=== PATIENT | male | born 1965 | race Caucasian/White ===

== ENCOUNTER → 2016-03-28 | Outpatient (CLI) | payer OTHER ==
[2016-03-28 18:14] LABS: ALBUMIN 4.6 GM/DL (3.2-5.2); ALBUMIN/GLOBULIN RATIO 1.44 (1.00-1.93); ALKALINE PHOSPHATASE 74 U/L (45-117); ALT/SGPT 45 U/L (12-78); ANION GAP 5 MEQ/L (8-16); AST/SGOT 30 U/L (15-37); BILIRUBIN,TOTAL 0.6 MG/DL (0.2-1.0); BLOOD UREA NITROGEN 19 MG/DL (7-18); CALCIUM LEVEL 9.5 MG/DL (8.5-10.1); CARBON DIOXIDE LEVEL 32 MEQ/L (21-32); CHLORIDE LEVEL 104 MEQ/L (98-107); CREATININE FOR GFR 0.86 MG/DL (0.70-1.30); GLOMERULAR FILTRATION RATE > 60.0 (>60); GLUCOSE, FASTING 123 MG/DL (70-105); POTASSIUM SERUM 4.5 MEQ/L (3.5-5.1); SODIUM LEVEL 141 MEQ/L (136-145); TOTAL PROTEIN 7.8 GM/DL (6.4-8.2)
[2016-03-31 00:07] LABS: PSA TOTAL 0.4 ng/mL (0.0-4.0)
== END ==
LOC: M WUC 14:21
PROVIDERS: ATTEND Nurse Practitioner Family
DX: Z12.5 Encounter for screening for malignant neoplasm of prostate (principal); I10 Essential (primary) hypertension

== ENCOUNTER 2016-07-06 14:11 | Emergency (ER) | payer OTHER ==
[~2016-07-06] VITALS: Ht 182.9 cm; Wt 113.4 kg
[2016-07-06] MEDS ORDERED: HYDR25TA6 (14:25)
[2016-07-06] MEDS ORDERED: BREO1INH (14:25)
[2016-07-06] MEDS ORDERED: ALBU17IN (14:25)
[2016-07-06] MEDS ORDERED: ENAL10TA2 (14:25)
[2016-07-06] MEDS ORDERED: IBUP80TA (14:26)
--- NOTE | 2016-07-06 16:07 | REP ---
LEFT SHOULDER, THREE VIEWS: HISTORY: Injury. There is no acute fracture or dislocation. There is narrowing of the joint spaces. Osteophytes are present at the acromioclavicular joint. Subchondral cysts are present in the head of the humerus. IMPRESSION: Degenerative change as described above. Signed by Gigi Be MD 07/06/2016 04:08 P
[2016-07-06 16:14] VITALS: BP 170/108
[2016-07-06] MEDS ORDERED: CYCL10TA PO (16:14)
[2016-07-06] MEDS ORDERED: NAPR500T PO (16:14)
== END 2016-07-06 16:33 | disposition home or self-care (01) ==
LOC: M ED 15:12
DX: M19.012 Primary osteoarthritis, left shoulder (principal); I10 Essential (primary) hypertension; J45.909 Unspecified asthma, uncomplicated; F17.200 Nicotine dependence, unspecified, uncomplicated; Z79.899 Other long term (current) drug therapy

== ENCOUNTER → 2016-08-29 | Outpatient (CLI) | payer OTHER ==
[~2016-08-29] MED LIST: ALBU17IN; BREO1INH; CYCL10TA PO; ENAL10TA2; HYDR25TA6; IBUP80TA; NAPR500T PO
[2016-08-29 19:09] LABS: ANION GAP 4 MEQ/L (8-16); BLOOD UREA NITROGEN 17 MG/DL (7-18); CALCIUM LEVEL 10.1 MG/DL (8.5-10.1); CARBON DIOXIDE LEVEL 31 MEQ/L (21-32); CHLORIDE LEVEL 101 MEQ/L (98-107); CREATININE FOR GFR 0.86 MG/DL (0.70-1.30); GLOMERULAR FILTRATION RATE > 60.0 (>56); GLUCOSE, FASTING 104 MG/DL (70-105); SODIUM LEVEL 136 MEQ/L (136-145)
[2016-08-29 19:11] LABS: POTASSIUM SERUM 5.7 MEQ/L (3.5-5.1)
== END ==
LOC: M WUC 14:20
PROVIDERS: ATTEND Nurse Practitioner Family
DX: I10 Essential (primary) hypertension (principal)

== ENCOUNTER → 2017-02-08 | Outpatient (REF) | payer OTHER ==
[2017-02-08 12:21] LABS: HEMOGLOBIN 15.8 g/dl (14.0-18.0); MEAN CORPUSCULAR HEMOGLOBIN 28.9 pg (27.0-33.0); MEAN CORPUSCULAR HGB CONC 33.6 g/dl (32.0-36.5); MEAN CORPUSCULAR VOLUME 85.9 fl (80.0-96.0); PLATELET COUNT, AUTOMATED 352 10^3/uL (150-450); RED BLOOD COUNT 5.47 10^6/uL (4.30-6.10); RED CELL DISTRIBUTION WIDTH 12.6 % (11.5-14.5); WHITE BLOOD COUNT 11.7 10^3/uL (4.0-10.0)
[2017-02-08 12:26] LABS: INR 0.98; PARTIAL THROMBOPLASTIN TIME 29.9 SECONDS (26.8-37.9); PROTHROMBIN TIME 13.1 SECONDS (12.4-14.5)
[2017-02-08 12:46] LABS: ANION GAP 8 MEQ/L (8-16); BLOOD UREA NITROGEN 17 MG/DL (7-18); CALCIUM LEVEL 9.8 MG/DL (8.5-10.1); CARBON DIOXIDE LEVEL 29 MEQ/L (21-32); CHLORIDE LEVEL 98 MEQ/L (98-107); CREATININE FOR GFR 0.83 MG/DL (0.70-1.30); GLOMERULAR FILTRATION RATE > 60.0 (>56); GLUCOSE, FASTING 122 MG/DL (70-105); POTASSIUM SERUM 3.8 MEQ/L (3.5-5.1); SODIUM LEVEL 135 MEQ/L (136-145)
== END ==
LOC: M SFHCPLAZ 10:23
DX: Z01.818 Encounter for other preprocedural examination (principal); M75.122 Complete rotator cuff tear or rupture of left shoulder, not specified as traumatic

== ENCOUNTER → 2017-03-08 | Outpatient (CLI) | payer OTHER | LOC: M SLEEP HO 10:13 | DX: G47.33 Obstructive sleep apnea (adult) (pediatric) (principal) ==

== ENCOUNTER → 2020-07-21 | Outpatient (REF) ==
[~2020-07-21] MED LIST changes: +CYCL-707 PO; -CYCL10TA PO; +ENAL-36; -ENAL10TA2; +HYDR-3490 PO; +HYDR-3713 PO; +NAPR-837 PO; -NAPR500T PO
--- NOTE | 2020-07-22 08:04 | REPPI ---
INDICATION: DISABILITY DIAGNOSIS DETERMINATION, ROTATOR CUFF TEAR COMPARISON: None. TECHNIQUE: AP, lateral, sunrise views of the right knee FINDINGS: Advanced tricompartmental osteoarthritic degenerative changes noted. Findings include subchondral sclerosis, joint space narrowing, cortical irregularity, osteophyte formation, small suspected loose bodies and elements of chondrocalcinosis. No acute fracture or dislocation. IMPRESSION: Advanced tricompartmental osteoarthritic degenerative changes. <Electronically signed by Kelton Amos > 07/22/20 [id number]
--- NOTE | 2020-07-22 08:08 | REPPI ---
INDICATION: DISABILITY DIAGNOSIS DETERMINATION, ROTATOR CUFF TEAR COMPARISON: None. TECHNIQUE: Internal rotation, external rotation, and Y view. FINDINGS: Cortical irregularity and significant osteophyte formation at the acromioclavicular joint is appreciated. The humeral head demonstrates cortical irregularity with small marginal osteophytes. The glenoid rim has a somewhat blunted heterogeneous sclerotic appearance. The subacromial space and glenohumeral spaces are decreased. No obvious periarticular calcification or loose body noted. No evidence for acute fracture or dislocation. IMPRESSION: Advanced osteoarthritic degenerative changes to the left shoulder. <Electronically signed by Kelton Amos > 07/22/20 [id number]
== END ==
LOC: M PLAIMG 09:54
PROVIDERS: ATTEND Internal Medicine
DX: Z02.71 Encounter for disability determination (principal)